=== PATIENT | male | born 1970 | race Caucasian/White ===

== ENCOUNTER 2023-03-02 14:02 | Inpatient (IN) | payer OTHER ==
[2023-03-02 14:53] VITALS: BMI 33.7
[2023-03-02] MEDS ORDERED: BENZONATATE 200 MG CAPSULE PO PRN (18:00)
[2023-03-02] MEDS ORDERED: IBUPROFEN 600 MG TABLET (FP) PO PRN (18:00)
[2023-03-02] MEDS ORDERED: BISMUTH SUBSALICYLATE 524 MG/30 ML PO PRN (18:00)
[2023-03-02] MEDS ORDERED: ONDANSETRON *ODT* 4 MG TABLET SL PRN (18:00)
[2023-03-02] MEDS ORDERED: NALOXONE HCL (KLOXXADO) 8 MG SPRAY NS PRN (18:00)
[2023-03-02] MEDS ORDERED: DICYCLOMINE HCL 10 MG CAPSULE PO PRN (18:00)
[2023-03-02] MEDS ORDERED: BENZOCAINE/MENTHOL (CHLORASEPTIC ) LOZENGE MM PRN (18:00)
[2023-03-02] MEDS ORDERED: NALOXONE HCL 0.4 MG/ML VIAL IM PRN (18:00)
[2023-03-02] MEDS ORDERED: ACETAMINOPHEN 325 MG TABLET (FP) PO PRN (18:00)
[2023-03-02] MEDS ORDERED: IBUPROFEN 400 MG TABLET (FP) PO PRN (18:00)
[2023-03-02] MEDS ORDERED: LOPERAMIDE HCL 2 MG CAPSULE PO PRN (18:00)
[2023-03-02] MEDS ORDERED: MAGNESIUM HYDROX 2400MG/30ML ORAL SUSPENSION 30 ML CUP PO PRN (18:00)
[2023-03-02] MEDS ORDERED: guaiFENesin 600 MG TABLET.ER (FP) PO PRN (18:00)
[2023-03-02] MEDS ORDERED: POLYETHYLENE GLYCOL (HEALTHYLAX) 3350 17 GM PACKET PO PRN (18:00)
[2023-03-02] MEDS ORDERED: TRIMETHOBENZAMIDE HCL 200MG/2ML INJ IM ONE ×2 (18:05→18:11)
[2023-03-02] MEDS ORDERED: chlordiazePOXIDE HCL 25 MG CAPSULE ONE (18:11)
[2023-03-02] MEDS: chlordiazePOXIDE HCL 25 MG CAPSULE PO PRN (18:18)
[2023-03-02] MEDS: METHOCARBAMOL 500 MG TABLET PO PRN (19:14)
[2023-03-02] MEDS: cloNIDine HCL 0.1 MG TABLET PO PRN (19:36)
[2023-03-02] MEDS: NICOTINE POLACRILEX 2 MG GUM BUC PRN (20:37)
[2023-03-02] MEDS: chlordiazePOXIDE HCL 25 MG CAPSULE PO SCH (22:02)
[2023-03-02] MEDS: MELATONIN 5 MG TABLETS PO SCH (22:02)
[2023-03-02] MEDS: THIAMINE HCL 100 MG TABLET (FP) PO SCH (22:02)
[2023-03-02] MEDS: hydrOXYzine PAMOATE 25 MG CAPSULE (FP) PO PRN (22:04)
[2023-03-03] MEDS: chlordiazePOXIDE HCL 25 MG CAPSULE PO SCH ×4 (05:41→22:17)
[2023-03-03] MEDS: hydrOXYzine PAMOATE 25 MG CAPSULE (FP) PO PRN (06:23)
[2023-03-03] MEDS: MAG HYDROX/AL HYDROX/SIMETH 30 ML UNIT-DOSE CUP PO PRN (09:06)
[2023-03-03] MEDS: NICOTINE POLACRILEX 2 MG GUM BUC PRN ×2 (09:06→14:10)
[2023-03-03] MEDS: PRENATAL VITAMINS W/ FOLIC ACID TABLET (FP) PO SCH (10:02)
[2023-03-03] MEDS ORDERED: FLUoxetine HCL 20 MG CAPSULE PO SCH (10:45)
[2023-03-03] MEDS: BUPRENORPHINE/NALOXONE 8 MG/2 MG FILM PACKET SL SCH (11:45)
[2023-03-03] MEDS: GABAPENTIN 100 MG CAPSULE PO SCH ×2 (13:03→22:17)
[2023-03-03] MEDS: chlordiazePOXIDE HCL 25 MG CAPSULE PO PRN ×2 (14:09→19:23)
[2023-03-03] MEDS: cloNIDine HCL 0.1 MG TABLET PO PRN (17:07)
[2023-03-03] MEDS: MELATONIN 5 MG TABLETS PO SCH (22:17)
[2023-03-03] MEDS: THIAMINE HCL 100 MG TABLET (FP) PO SCH (22:17)
[2023-03-03] MEDS: OLANZapine 10 MG TABLET PO SCH (22:17)
[2023-03-04] MEDS: chlordiazePOXIDE HCL 25 MG CAPSULE PO SCH ×4 (05:35→22:01)
[2023-03-04] MEDS: GABAPENTIN 100 MG CAPSULE PO SCH ×3 (05:37→22:01)
[2023-03-04] MEDS: PRENATAL VITAMINS W/ FOLIC ACID TABLET (FP) PO SCH (10:36)
[2023-03-04] MEDS: FLUoxetine HCL 20 MG CAPSULE PO SCH (10:37)
[2023-03-04] MEDS: BUPRENORPHINE/NALOXONE 8 MG/2 MG FILM PACKET SL SCH (10:37)
[2023-03-04] MEDS: NICOTINE POLACRILEX 2 MG GUM BUC PRN ×3 (12:48→22:03)
[2023-03-04] MEDS: hydrOXYzine PAMOATE 25 MG CAPSULE (FP) PO PRN ×2 (13:42→22:01)
[2023-03-04] MEDS: OLANZapine 10 MG TABLET PO SCH (22:00)
[2023-03-04] MEDS: MELATONIN 5 MG TABLETS PO SCH (22:00)
[2023-03-04] MEDS: THIAMINE HCL 100 MG TABLET (FP) PO SCH (22:01)
[2023-03-04] MEDS: METHOCARBAMOL 500 MG TABLET PO PRN (22:01)
[2023-03-05] MEDS ORDERED: chlordiazePOXIDE HCL 10 MG CAPSULE PO PRN
[2023-03-05] MEDS: chlordiazePOXIDE HCL 10 MG CAPSULE PO SCH ×4 (05:44→22:12)
[2023-03-05] MEDS: GABAPENTIN 100 MG CAPSULE PO SCH ×3 (05:44→22:11)
[2023-03-05] MEDS: FLUoxetine HCL 20 MG CAPSULE PO SCH (10:36)
[2023-03-05] MEDS: BUPRENORPHINE/NALOXONE 8 MG/2 MG FILM PACKET SL SCH (10:36)
[2023-03-05] MEDS: PRENATAL VITAMINS W/ FOLIC ACID TABLET (FP) PO SCH (10:36)
[2023-03-05] MEDS: NICOTINE POLACRILEX 2 MG GUM BUC PRN ×3 (10:37→22:13)
[2023-03-05] MEDS: hydrOXYzine PAMOATE 25 MG CAPSULE (FP) PO PRN ×2 (10:37→17:31)
[2023-03-05] MEDS: MAG HYDROX/AL HYDROX/SIMETH 30 ML UNIT-DOSE CUP PO PRN ×2 (14:48→22:13)
[2023-03-05] MEDS: METHOCARBAMOL 500 MG TABLET PO PRN (17:32)
[2023-03-05] MEDS: MELATONIN 5 MG TABLETS PO SCH (22:11)
[2023-03-05] MEDS: THIAMINE HCL 100 MG TABLET (FP) PO SCH (22:11)
[2023-03-05] MEDS: OLANZapine 10 MG TABLET PO SCH (22:11)
[2023-03-06] MEDS: chlordiazePOXIDE HCL 10 MG CAPSULE PO SCH ×2 (05:29→17:28)
[2023-03-06] MEDS: GABAPENTIN 100 MG CAPSULE PO SCH ×3 (05:29→22:46)
[2023-03-06] MEDS: BUPRENORPHINE/NALOXONE 8 MG/2 MG FILM PACKET SL SCH (10:31)
[2023-03-06] MEDS: FLUoxetine HCL 20 MG CAPSULE PO SCH (10:31)
[2023-03-06] MEDS: PRENATAL VITAMINS W/ FOLIC ACID TABLET (FP) PO SCH (10:31)
[2023-03-06] MEDS: NICOTINE POLACRILEX 2 MG GUM BUC PRN ×3 (10:32→22:47)
[2023-03-06] MEDS: hydrOXYzine PAMOATE 25 MG CAPSULE (FP) PO PRN ×2 (10:32→17:30)
[2023-03-06 15:25] LABS: HEMATOCRIT 36.7 % (35.4-49); HEMOGLOBIN 11.9 GM/dL (11.7-16.9); MCH 30.7 pg (25.7-33.7); MCHC 32.6 g/dl (32.0-35.9); MEAN CELL VOLUME 94.4 fl (80-96); MEAN PLT VOLUME 7.8 fl (7.5-11.1); PLATELET COUNT 167 10^3/uL (134-434); RBC 3.89 M/mm3 (4.00-5.60); RDW 14.2 % (11.9-15.9); WHITE BLOOD COUNT 5.6 K/mm3 (4.0-10.0)
[2023-03-06 16:06] LABS: POTASSIUM 4.4 mmol/L (3.5-5.1)
[2023-03-06 16:08] LABS: CALCIUM 8.7 mg/dL (8.5-10.1)
[2023-03-06 16:09] LABS: ALBUMIN 3.1 g/dl (3.4-5.0)
[2023-03-06 16:12] LABS: CREATININE 0.6 mg/dL (0.55-1.3)
[2023-03-06 16:13] LABS: BILIRUBIN,TOTAL 0.2 mg/dL (0.2-1); TOT PROT 5.7 g/dl (6.4-8.2)
[2023-03-06] MEDS: MAG HYDROX/AL HYDROX/SIMETH 30 ML UNIT-DOSE CUP PO PRN (19:38)
[2023-03-06] MEDS: THIAMINE HCL 100 MG TABLET (FP) PO SCH (22:46)
[2023-03-06] MEDS: OLANZapine 10 MG TABLET PO SCH (22:47)
[2023-03-06] MEDS: MELATONIN 5 MG TABLETS PO SCH (22:47)
[2023-03-07] MEDS ORDERED: chlordiazePOXIDE HCL 10 MG CAPSULE PO ONE (05:00)
[2023-03-07] MEDS: GABAPENTIN 100 MG CAPSULE PO SCH (05:51)
[2023-03-07 06:09] VITALS: TEMP 97.7
[2023-03-07 09:15] VITALS: BP 128/78; PULSE 76; RESP 18
[2023-03-07] MEDS: PRENATAL VITAMINS W/ FOLIC ACID TABLET (FP) PO SCH (10:36)
[2023-03-07] MEDS: BUPRENORPHINE/NALOXONE 8 MG/2 MG FILM PACKET SL SCH (10:39)
[2023-03-07] MEDS: hydrOXYzine PAMOATE 25 MG CAPSULE (FP) PO PRN (10:39)
[2023-03-07] MEDS: NICOTINE POLACRILEX 2 MG GUM BUC PRN (10:39)
[2023-03-07] MEDS: FLUoxetine HCL 20 MG CAPSULE PO SCH (10:40)
== END 2023-03-07 11:23 | disposition home or self-care (01) | DRG 773 ==
LOC: YASAS 14:02 → Y3N 18:34
PROVIDERS: ADMIT Allergy & Immunology; ATTEND Surgery
PROC: HZ2ZZZZ Detoxification Services for Substance Abuse Treatment (ICD-10-PCS; principal; 2023-03-02)
DX: F10.230 Alcohol dependence with withdrawal, uncomplicated (principal); F13.230 Sedative, hypnotic or anxiolytic dependence with withdrawal, uncomplicated; F11.20 Opioid dependence, uncomplicated; F12.20 Cannabis dependence, uncomplicated; F17.210 Nicotine dependence, cigarettes, uncomplicated; F31.9 Bipolar disorder, unspecified; F41.9 Anxiety disorder, unspecified; R74.01 Elevation of levels of liver transaminase levels
CPT/HCPCS: 36415; 80053; 85027; 87635; Q0162